=== PATIENT | male | born 1960 | race Caucasian/White ===

== ENCOUNTER 2016-09-06 17:49 | Emergency (ER) | payer SELFPAY ==
[~2016-09-06] VITALS: Ht 177.8 cm; Wt 70.0 kg
[~2016-09-06 17:49] MED LIST: ABIL5TAB6 PO; CHLO25 PO; CYCL-36 PO; CYMB30CA PO; MOBI7.5T PO; NEUR100C PO
[2016-09-06 17:53] VITALS: BP 111/72; PULSE 104; RESP 16; TEMP 98.1; O2SAT 96
[2016-09-06] MEDS ORDERED: CELE40TA PO (18:17)
[2016-09-06] MEDS ORDERED: MORPHINE SULFATE 4 MG/ML INJ IV PUSH ONE (18:30)
[2016-09-06] MEDS ORDERED: SODIUM CHLOR 0.9% 1000 ML INJ 1,000 ML IV ONE (18:30)
[2016-09-06] MEDS ORDERED: ONDANSETRON HCL 4 MG/2 ML VIAL IV PUSH ONE (18:30)
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
[2016-09-06 19:26] VITALS: BP 122/80; PULSE 91; RESP 16; O2SAT 98
[2016-09-06 19:26] LABS: BICARBONATE 26.7 MEQ/L (21.0-32.0); POTASSIUM 4.4 MEQ/L (3.5-5.1)
--- NOTE | 2016-09-06 19:47 | RADRPT ---
EXAM DATE/TIME: 09/06/2016 19:06 [facility] COMPARISON: CT CERVICAL SPINE W/O CONTRAST, June 26, 2015, 21:54. INDICATIONS : Trip and fall, neck pain. RADIATION DOSE: 19.64 CTDIvol (mGy) MEDICAL HISTORY : Hypertension. SURGICAL HISTORY : None. ENCOUNTER: Initial ACUITY: 1 day PAIN SCALE: 7/10 LOCATION: neck TECHNIQUE: Volumetric scanning of the cervical spine was performed. Multiplanar reconstructions i n the sagittal, coronal and oblique axial planes were performed. Using automated exposure control a nd adjustment of the mA and/or kV according to patient size, radiation dose was kept as low as reason ably achievable to obtain optimal diagnostic quality images. FINDINGS: VERTEBRAE: Normal vertebral body height. ALIGNMENT: No evidence of subluxation. C2-C3: The bony spinal canal is normal in size. No evidence of disc bulge or herniation. The neura l foramina are bilaterally patent. C3-C4: The bony spinal canal is normal in size. No evidence of disc bulge or herniation. The neura l foramina are bilaterally patent. C4-C5: The bony spinal canal is normal in size. No evidence of disc bulge or herniation. The neura l foramina are bilaterally patent. C5-C6: The bony spinal canal is normal in size. No evidence of disc bulge or herniation. The neura l foramina are bilaterally patent. Mild uncinate ridging is present. C6-C7: The bony spinal canal is normal in size. No evidence of disc bulge or herniation. The neura l foramina are bilaterally patent. Mild uncinate ridging is present. C7-T1: The bony spinal canal is normal in size. No evidence of disc bulge or herniation. The neura l foramina are bilaterally patent. CONCLUSION: Negative for an acute process. Sylvester Mcmanus MD FACR on September 06, 2016 at 19:45 Board Certified Radiologist. This report was verified electronically.
[2016-09-06] MEDS ORDERED: IBUP400T20 PO (20:26)
[2016-09-06] MEDS ORDERED: ORPH100T99 PO (20:26)
[2016-09-06] MEDS ORDERED: KETOROLAC TROMETHAMINE 30 MG/ML (IVP) VIAL IV PUSH ONE (20:30)
[2016-09-06 22:00] VITALS: BP 111/77; PULSE 88; RESP 16; O2SAT 95
[2016-09-07 07:00] VITALS: RESP 17
[2016-09-07 08:29] VITALS: BP 120/78; TEMP 97.8
== END 2016-09-07 08:28 | disposition home or self-care (01) ==
LOC: NEPA 17:49
DX: M54.2 Cervicalgia (principal); I10 Essential (primary) hypertension; F10.120 Alcohol abuse with intoxication, uncomplicated; Y90.6 Blood alcohol level of 120-199 mg/100 ml; W01.0XXA Fall on same level from slipping, tripping and stumbling without subsequent striking against object, initial encounter; Z72.0 Tobacco use
CPT/HCPCS: 70450; 72125; 80048; 80320; 96361; 96374; 96375; 99284; J1885; J2270; J2405; J7030